=== PATIENT | male | born 1935 | race Caucasian/White ===

== ENCOUNTER 2016-08-17 18:29 | Inpatient (IN) | payer MEDICARE, OTHER ==
--- NOTE | 2016-08-17 19:25 | Emergency Department Record ---
History of Present Illness - General Chief Complaint: Dizziness Stated Complaint: DIZZY Time Seen by Provider: 08/17/16 19:03 Source: Patient, Family Mode of Arrival: Wheelchair - History of Present Illness Initial Comments: The patient awakened this morning with the room spinning when he got up. He said the spinning made him nauseated and he felt like he might fall over, like he was seasick. He did not vomit, and did not fall. He states the symptoms improve when he stays still. He had a mild frontal headache this morning also which has resolved after taking aspirin. He denies f,c, slurred speech, vision changes, unilateral weakness. Family states he was flushed and the took his temp earlier which was normal. He has a history of low back surgery years ago with mild residual right leg numbness which is unchanged. 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 This was about 20 years ago and no cancer has recurred. He denies history of CAD, TN, DVT, PE, CVA, and does not smoke. MD Complaint: Dizziness Onset/Timin -: Hour(s) Timing: Awoke with symptoms Description: Difficulty walking, "Room spinning" History of Same: No History of Trauma: No Severity: Moderate Improves With: Remaining still Worsens With: Movement Associated Symptoms: Denies other symptoms - [place] Coma Scale Eye Response: (4) Open spontaneously Motor Response: (6) Obeys commands Verbal Response: (5) Oriented Joey Total: 15 - Related Data Home Medications Medication Instructions Recorded Confirmed Last Taken Amlodipine Besylate [Norvasc] 10 mg PO DAILY 08/17/16 08/17/16 08/17/16 Aspirin [Adult Low Dose Aspirin EC] 81 mg PO DAILY 08/17/16 08/17/16 08/17/16 Ciprofloxacin HCl [Cipro] 500 mg PO ASDIR 08/17/16 08/17/16 08/17/16 Omeprazole [Prilosec] 20 mg PO DAILY 08/17/16 08/17/16 08/17/16 Allergies Allergy/AdvReac Type Severity Reaction Status Date / Time meperidine [From Demerol] AdvReac DIZZINESS Verified 08/17/16 18:33 Travel Screening - Travel/Exposure Within Last 30 Days Have you traveled within the last 30 days?: No - Travel/Exposure Within Last Year Have you traveled outside the [place] in the last year?: No - Additonal Travel Details Have you been exposed to anyone with a communicable illness?: No - Travel Symptoms Symptom Screening: None Review of Systems Reviewed: No additional complaints except as noted below Constitutional: Reports: As per HPI. Denies: Chills, Fever, Malaise, Night sweats, Weakness, Weight change Eyes: Reports: As per HPI. Denies: Eye discharge, Eye pain, Photophobia, Vision change ENT: Reports: As per HPI. Denies: Congestion, Dental pain, Ear pain, Epistaxis , Hearing loss, Throat pain Respiratory: Reports: As per HPI. Denies: Cough, Dyspnea, Hemoptysis, Stridor, Wheezes Cardiovascular: Reports: As per HPI. Denies: Arrhythmia, Chest pain, Dyspnea on exertion, Edema, Murmurs, Orthopnea, Palpitations, Paroxysmal nocturnal dyspnea, Rheumatic Fever, Syncope Endocrine: Reports: As per HPI. Denies: Fatigue, Heat or cold intolerance, Polydipsia, Polyuria Gastrointestinal: Reports: As per HPI. Denies: Abdominal pain, Constipation, Diarrhea, Hematemesis, Hematochezia, Melena, Nausea, Vomiting Genitourinary: Reports: As per HPI. Denies: Dysuria, Frequency, Hematuria, Incontinence, Retention, Testicular pain, Testicular mass, Urgency Musculoskeletal: Reports: As per HPI. Denies: Arthralgia, Back pain, Gout, Joint swelling, Myalgia, Neck pain Skin: Reports: As per HPI. Denies: Bruising, Change in color, Change in hair/ nails, Lesions, Pruritus, Rash Neurological: Reports: As per HPI. Denies: Abnormal gait, Confusion, Headache, Numbness, Paresthesias, Seizure, Tingling, Tremors, Vertigo, Weakness Psychiatric: Reports: As per HPI. Denies: Anxiety, Auditory hallucinations, Depression, Homicidal thoughts, Suicidal thoughts, Visual hallucinations Hematological/Lymphatic: Reports: As per HPI. Denies: Anemia, Blood Clots, Easy bleeding, Easy bruising, Swollen glands Past Medical History - SOCIAL HISTORY Smoking Status: Never smoker Alcohol Use: None Drug Use: None - RESPIRATORY Hx Respiratory Disorders: No - CARDIOVASCULAR Hx Cardio Disorders: Yes Hx Hypertension: Yes - NEURO Hx Neuro Disorders: No - GI Hx GI Disorders: Yes Comment:: colostomy - Hx Genitourinary Disorders: Yes Hx Prostate Problems: Yes (cancer) Comment:: urostomy - ENDOCRINE Hx Endocrine Disorders: No - MUSCULOSKELETAL Hx Musculoskeletal Disorders: No - PSYCH Hx Psych Problems: No - HEMATOLOGY/ONCOLOGY Hx Hematology/Oncology Disorders: Yes Hx Cancer: Yes Hx Radiation Therapy: Yes Family Medical History Any Significant Family History?: No Physical Exam - General General Appearance: Alert, Oriented x3, Cooperative, No acute distress - Head Head exam: Normal inspection - Eye Eye exam: Normal appearance, PERRL Pupils: Normal accommodation - ENT ENT exam: Normal exam, Mucous membranes moist, Normal external ear exam, Normal orophraynx, TM's normal bilaterally Ear exam: Normal external inspection. negative: External canal tenderness Nasal Exam: Normal inspection. negative: Discharge, Sinus tenderness Mouth exam: Normal external inspection, Tongue normal Teeth exam: Normal inspection. negative: Dental caries Throat exam: Normal inspection. negative: Tonsillar erythema, Tonsillar exudate - Neck Neck exam: Normal inspection, Full ROM. negative: Tenderness - Respiratory Respiratory exam: Normal lung sounds bilaterally. negative: Respiratory distress - Cardiovascular Cardiovascular Exam: Regular rate, Normal rhythm, Normal heart sounds - GI/Abdominal GI/Abdominal exam: Soft, Normal bowel sounds, Other (urostomy pouch intact and functioning; colostomy intact and functioning). negative: Tenderness - Rectal Rectal exam: Deferred - exam: Deferred - Extremities Extremities exam: Normal inspection, Full ROM, Normal capillary refill. negative: Calf tenderness, Joint swelling, Pedal edema, Tenderness - Back Back exam: Reports: Normal inspection, Full ROM. Denies: CVA tenderness (R), CVA tenderness (L), Muscle spasm, Rash noted, Tenderness - Neurological Neurological exam: Alert, CN II-XII intact, Oriented X3, Reflexes normal - Psychiatric Psychiatric exam: Normal affect, Normal mood - Skin Skin exam: Dry, Intact, Normal color, Warm Course Vital Signs 08/17/16 18:38 Temperature 97.5 F L Pulse Rate 80 Respiratory 16 Rate Blood Pressure 136/76 Pulse Ox 97 - Reevaluation(s) Reevaluation #1: Patient agrees to admission for his UTI, Nausea, vertigo, renal insufficiency 08/17/16 21:37 Reevaluation #2: Family and patient concerned that if he tried to walk he would fall down and injure himself. Family wishes full admission. PCP Dr. Mcguire. 08/17/16 21:42 Medical Decision Making - Management Options MDM Management: Additional Work-up Planned (e.g. ADM/Transfer/OP Study) (UTI; renal insufficiency; vertigo, nausea) - Data Complexity MDM Data: Labs Ordered and/or Reviewed, X-Ray Ordered and/or Reviewed ( Noncontrast Head CT: SVID periventricular; no acute infarct or hemorrhage. Per Rad.), EKG Ordered and/or Reviewed - Lab Data Result diagrams: 08/17/16 Unknown 08/17/16 Unknown - EKG Data -: EKG Interpreted by Me EKG: No Acute Changes (No prior available;) Disposition Disposition: Admit Clinical Impression: UTI (urinary tract infection) with pyuria, Vertigo, Nausea, Renal insufficiency Disposition: Still a Patient at [facility] Decision to Admit: Admit from ER Decision to Admit Date: 08/17/16 Decision to Admit Time: 21:42 Accepting Physician: Dr. Amador Condition: (2) Stable
[2016-08-17] MEDS ORDERED: DIAZEPAM 5 MG TABLET PO ONE (19:33)
[2016-08-17 20:11] LABS: URINE APPEARANCE CLEAR; URINE BILIRUBIN NEGATIVE (NEGATIVE); URINE BLOOD MODERATE (NEGATIVE); URINE COLOR YELLOW; URINE GLUCOSE (UA) NEGATIVE (NEGATIVE); URINE KETONE NEGATIVE (NEGATIVE); URINE LEUKOCYTE ESTERASE LARGE (NEGATIVE); URINE NITRITE POSITIVE (NEGATIVE); URINE PROTEIN TRACE (NEGATIVE); URINE UROBILINOGEN 0.2 E.U./dL (0.20 - 1.00)
[2016-08-17 20:27] LABS: URINE BACTERIA 2+; URINE MUCUS HEAVY
[2016-08-17 20:56] LABS: HEMATOCRIT 45.1 % (42.0-52.0); HEMOGLOBIN 14.3 gm/dl (14.0-18.0); MEAN CELL VOLUME 97.4 fl (81-97); MEAN CORPUSCULAR HEMOGLOBIN 30.9 pg (27-33); MEAN CORPUSCULAR HGB CONC 31.7 g/dl (32-36); PLATELET COUNT 291 K/uL (130-400); RED BLOOD COUNT 4.63 M/uL (4.40-5.70); RED CELL DISTRIBUTION WIDTH 14.1 % (11.5-14.5); WHITE BLOOD COUNT W/O DIFF 8.6 K/uL (4.2-12.2)
[2016-08-17 21:14] LABS: ANION GAP 12.5 (7-16); BLOOD UREA NITROGEN 21 mg/dL (9-20); CARBON DIOXIDE 22.5 mmol/L (22-30); CREATINE PHOSPHOKINASE 130 U/L (55-170); CREATININE 1.5 mg/dL (0.66-1.25); EST GLOMERULAR FILTRATION RATE 48 ml/min; GLUCOSE,RANDOM 94 mg/dL (70-110)
[2016-08-17 21:26] LABS: CKMB 1.8 ug/L (0-6); TROPONIN I < 0.012 ng/mL (0.00-0.034)
[2016-08-17] MEDS ORDERED: CIPROFLOXACIN LACTATE/D5W 400 MG/200 ML BAG IVPB ONE (21:38)
[2016-08-17] MEDS ORDERED: ACETAMINOPHEN 500 MG TABLET PO PRN (22:13)
[2016-08-17] MEDS ORDERED: CIPROFLOXACIN LACTATE/D5W 400 MG/200 ML BAG IVPB SCH (22:13)
[2016-08-17] MEDS ORDERED: AL HYDROX/MAG HYDROX 30ML UD PO PRN (22:13)
[2016-08-17] MEDS ORDERED: DIAZEPAM 5 MG/1 ML TUBX IVP PRN (22:13)
[2016-08-18 06:47] LABS: ANION GAP 9.6 (7-16); CARBON DIOXIDE 21.4 mmol/L (22-30); CREATININE 1.5 mg/dL (0.66-1.25)
[2016-08-18] MEDS ORDERED: PANTOPRAZOLE SODIUM 40 MG TABLET PO SCH (07:00)
--- NOTE | 2016-08-18 07:32 | CT SCAN REPORT ---
EXAM: CT OF THE BRAIN WITHOUT CONTRAST HISTORY: DIZZINESS. TECHNIQUE: Sequential axial images were obtained from the foramen magnum to the vertex without contrast administration. FINDINGS: The brain volume is normal. There is periventricular small vessel ischemia. No large territorial infarct, hemorrhage, mass effect, or midline shift. No extraaxial fluid collection. The orbits, paranasal sinuses, and mastoid air cells are normal. IMPRESSION: PERIVENTRICULAR SMALL VESSEL ISCHEMIA. NO LARGE TERRITORIAL INFARCT, HEMORRHAGE , MASS EFFECT, OR MIDLINE SHIFT IS APPRECIATED. [facility]: [id number] [facility]
[2016-08-18] MEDS ORDERED: MECLIZINE 25 MG TABLET PO SCH (10:00)
[2016-08-18] MEDS ORDERED: ASPIRIN 81 MG TABEC PO SCH (10:00)
[2016-08-18] MEDS ORDERED: CIPROFLOXACIN LACTATE/D5W 400 MG/200 ML BAG IVPB SCH (10:00)
[2016-08-18] MEDS ORDERED: AMLODIPINE BESYLATE 5MG TAB PO SCH (10:00)
--- NOTE | 2016-08-18 13:19 | Discharge Note ---
VTE H&P Assessment - Risk for VTE Risk for VTE: No Risk Level: Low Risk Assessment Date: 08/18/16 Risk Assessment Time: 13:15 VTE Orders Placed or Will Be Placed: No VTE Reason for No Prophylaxis: Not Indicated Discharge Medications - Discharge Medications Home Medications: Ambulatory Orders Amlodipine Besylate [Norvasc] 10 mg PO DAILY 08/17/16 [Last Taken 08/17/16] Aspirin [Adult Low Dose Aspirin EC] 81 mg PO DAILY 08/17/16 [Last Taken 08/17/16 ] Omeprazole [Prilosec] 20 mg PO DAILY 08/17/16 [Last Taken 08/17/16] Acetaminophen [Tylenol 500Mg Tab] 500 mg PO Q6H PRN 08/18/16 [Last Taken Unknown ] Ciprofloxacin HCl [Cipro] 500 mg PO Q12H #20 tablet 08/18/16 [Last Taken Unknown ] Meclizine HCl [Antivert] 25 mg PO TID #30 08/18/16 [Last Taken Unknown] Discharge Note - Date Date of Discharge Note: 08/18/16 Disposition: Home, Self-Care Condition: (2) Stable Additional Instructions: follow up with Dr. harmon in 7 days. antivert 25 mg three times a day Prescriptions: Ciprofloxacin HCl [Cipro] 500 mg PO Q12H #20 tablet Meclizine HCl [Antivert] 25 mg PO TID #30 Forms: Patient Portal Access
--- NOTE | 2016-08-19 09:51 | History and Physical Report ---
CHIEF COMPLAINT: Spinning and vertigo. HISTORY OF CHIEF COMPLAINT: This 81-year-old male woke up with a sensation of spinning when he got up, it was much worse when he sat up, moved around or rotated his head right or left. He was nauseated. He felt like he was going to fall over. He felt sea sick. He did not vomit and he did not fall. He had a mild frontal headache when he woke up that has resolved after taking an aspirin this morning. He denies any slurred speech, visual changes, or unilateral weakness. He was a little bit flushed and his temperature was normal at home. He has a history of low back surgery and mild residual right leg pain. He also had prostate cancer radiation which damaged the colon and bladder. He has a urostomy and a colostomy tube. They put a new bag on and checked the urine, still it was very contaminated with WBC's, RBC's and bacteria so the Emergency Room doctor Dr. Hodgson who evaluated him in the Emergency Room felt he needed to be on IV antibiotic therapeutic amount. He was taking normally maintenance of Cipro 250 every other day to prevent urinary tract infections. Currently he is on 400 of Cipro IV twice a day. PAST MEDICAL HISTORY: He has hypertension, GERD, and he has a urostomy and colostomy bag. He had colon cancer and radiation therapy about twenty years ago. PAST SURGICAL HISTORY: He has had prostate surgery for prostate cancer treated with radiation which caused damage to his colon and bladder, he had back surgery with some residual numbness in the right leg. MEDICATIONS ON ADMISSION: He is on Cipro 250 every other day, Norvasc 10 mg q daily, Omeprazole 20 mg q daily, and aspirin 81 mg q daily. ALLERGIES: MEPERIDINE WHICH IS DEMEROL. FAMILY/PSYCHOSOCIAL HISTORY: Unremarkable. No cigarette or tobacco use. REVIEW OF SYSTEMS: HEENT: No upper respiratory infectious symptoms, cough, cold or congestion. Cardiovascular: No chest pain, palpitations, or arrhythmias. Respiratory: No cough, cold or congestion. Gastrointestinal: No nausea, vomiting, diarrhea, black stools, or bloody stools. Genitourinary: No dysuria, hematuria, frequency or burning on urination. Musculoskeletal: No joint or bone abnormalities. Neurologic: He does have some numbness in the right leg which is residual from his back surgery. No CVA, paralysis or paresthesias. Endocrine: No diabetes or thyroid disease. Integument: No rash , ulcers, change in moles or yellow skin. PHYSICAL EXAMINATION: Height is 5'7", weight is 166 pounds. Vital signs - Temperature is 97.5, pulse is 93, blood pressure is 124/72, pulse ox is 97% on room air. HEENT: Pupils are equal, round and reactive to light and accommodation. Extraocular muscles are intact. Throat is clear. Nose is clear. Tympanic membranes are nava. NECK: Supple. No jugular venous distension. No hepatojugular reflex. No carotid bruits. Thyroid is smooth. CARDIOVASCULAR: Regular rate and rhythm without murmurs, clicks, rubs or gallops. RESPIRATORY: Clear to auscultation and percussion. ABDOMEN: Soft, nontender. No hepatosplenomegaly. No masses. No tenderness. Bowel sounds are active. No bruits. EXTREMITIES: No pitting edema. No cyanosis. No clubbing. Full range of motion. Peripheral pulses are good. BREASTS: Normal male breasts. RECTAL: Deferred. GENITALIA: Deferred. NEUROLOGICAL: Cranial nerves II through XII intact. No gross defects. Sensation normal. Strength normal. Deep tendon reflexes are equal bilaterally. Babinski's negative. He has nystagmus when turning his head right and left and he has a spinning sensation with that nystagmus. MENTAL STATUS: Alert and oriented times three. IMPRESSION: 1. BENIGN POSTURAL VERTIGO. 2. URINARY TRACT INFECTION. 3. 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 4. RENAL INSUFFICIENCY. HIS CREATININE IS 1.5 WHICH IS THE TYPICAL AMOUNT. PLAN: The patient is doing better. We will change him to observation, discharge the patient, Antivert 25 mg t.i.d., follow-up with Dr. Mcguire in seven days, continue Cipro at 250 twice a day for ten days and then switch back to the Cipro 250 then every other day for maintenance to prevent urinary tract infections. We will continue his home medications of Amlodipine 10 mg a day, Omeprazole 20 mg a day, and aspirin 81 mg a day. [facility] [id number] [facility]
--- NOTE | 2016-08-19 15:50 | Discharge Summary ---
DATE: 08/18/2016 DISCHARGE DIAGNOSES: 1. Benign postural vertigo. 2. Urinary tract infection. 3. Renal insufficiency, stable creatinine of 1.5. 4. Possible colonization of his urostomy bag and he is on maintenance Cipro 250 every other day. 5. Status post hypertension. 6. Status post gastroesophageal reflux disease. ATTENDING PHYSICIAN: Polo Amador DO REASON FOR HOSPITALIZATION: Vertigo. The patient developed a spinning sensation when he woke up on the day of admission, yesterday, and it was worse moving his head right or left. He had some nausea. He felt like his balance was off. He was seasick. He came to the ER, got some IV Valium and felt better and was put in the hospital to rule out a stroke. His CT scan was normal and his neuro checks were normal. He does not have any signs of stroke at this time. SIGNIFICANT FINDINGS: CT was negative for any significant abnormalities. There was some periventricular small vessel ischemia. No large territorial infarct seen or hemorrhages, mass effects, or midline shifts appreciated. Set of cardiac enzymes was normal. Urine showed too numerous to count RBC, too numerous WBCs, and 2+ bacteria but he has a urostomy bag. They did put a new bag on to try to get a clean catch urine but it still is very positive. Moderate blood in the urine dipstick. White count 8600, hemoglobin 14.6. No fever, no chills. He was started on IV Cipro plus IV Valium for his vertigo. Switched over to Antivert today and he is feeling much better. THERAPY PROVIDED: IV fluids. Serial neuro checks and evaluation. HOSPITAL COURSE: He is much improved. CONDITION ON DISCHARGE: Much improved. DISCHARGE INSTRUCTIONS: Follow up with Dr. Mcguire in 7 days. Start the Antivert 25 mg t.i.d., Cipro 500 mg b.i.d. for 10 days. After that is gone, he is to switch back to his maintenance of Cipro at 250 every other day and continue his home medications of amlodipine 10 mg daily, omeprazole 20 mg daily, and aspirin 81 mg daily. [facility]
== END 2016-08-18 14:30 | disposition home or self-care (01) | DRG 149 ==
LOC: ER 18:29 → MEDSURG 22:02
PROVIDERS: ADMIT Emergency Medicine; ATTEND Emergency Medicine
DX: H81.10 Benign paroxysmal vertigo, unspecified ear (principal); H81.13 Benign paroxysmal vertigo, bilateral; N39.0 Urinary tract infection, site not specified; I10 Essential (primary) hypertension; Z85.038 Personal history of other malignant neoplasm of large intestine; Z85.46 Personal history of malignant neoplasm of prostate; N28.9 Disorder of kidney and ureter, unspecified; K21.9 Gastro-esophageal reflux disease without esophagitis; Z93.6 Other artificial openings of urinary tract status; Z93.3 Colostomy status
CPT/HCPCS: 81001; 70450; 93005; 93010; J0744; J3490; 80048; 82550; 82553; 84484; 85027; 96365; 99223; 99285

== ENCOUNTER 2017-02-19 10:16 | Observation (INO) | payer MEDICARE, OTHER ==
--- NOTE | 2017-02-19 10:40 | Emergency Department Record ---
History of Present Illness - General Chief Complaint: Dizziness Stated Complaint: DIZZY/NAUSEA/HEADACHE Time Seen by Provider: 02/19/17 10:39 Source: Patient Mode of Arrival: Ambulatory Limitations: No limitations - History of Present Illness Initial Comments: The patient is here due to a 4 hour hx of nausea, vomiting twice and dizziness. He describes the dizziness as like the room is spinning and feeling off balance. The symptoms are much worse with any walking or standing or moving his head. There is mild nausea presently but he no longer is vomiting. The patient also denies any CP, SOB, JOVANY, AP, change in his stool pattern or bleeding. He also has had no new arm or leg numbness, weakness, visual changes, or speech difficulties. The patient does have a hx of Prostrate CA and does have a Urostomy and Colostomy. MD Complaint: Dizziness Onset/Timin -: Hour(s) - Symptoms of Stroke Symptom Onset Unknown: No Symptoms of stroke: Dizziness - Related Data Home Medications Medication Instructions Recorded Confirmed Last Taken Atorvastatin Calcium [Lipitor] 10 mg PO QHS 02/19/17 02/19/17 02/18/17 2100 Ciprofloxacin HCl [Cipro] 500 mg PO Q72HR 02/19/17 02/19/17 1 Day Ago ~02/18/17 Previous Rx's Medication Instructions Recorded Acetaminophen [Tylenol 500Mg Tab] 500 mg PO Q6H PRN 08/18/16 Meclizine HCl [Antivert] 25 mg PO TID #30 08/18/16 Allergies Allergy/AdvReac Type Severity Reaction Status Date / Time meperidine [From Demerol] AdvReac DIZZINESS Verified 02/19/17 11:10 Review of Systems Constitutional: Denies: Chills, Fever Eyes: Denies: Eye discharge ENT: Denies: Congestion, Other Respiratory: Denies: Cough, Dyspnea Cardiovascular: Denies: Arrhythmia Endocrine: Denies: Fatigue Gastrointestinal: Reports: Nausea, Vomiting. Denies: Abdominal pain Genitourinary: Denies: Dysuria Musculoskeletal: Denies: Arthralgia Past Medical History - SOCIAL HISTORY Smoking Status: Never smoker Drug Use: None - RESPIRATORY Hx Respiratory Disorders: No - CARDIOVASCULAR Hx Cardio Disorders: Yes Hx Hypertension: Yes - NEURO Hx Neuro Disorders: No Comment:: residual numbness of RLE after back surgery - GI Hx GI Disorders: Yes Comment:: colostomy - Hx Genitourinary Disorders: Yes Hx Prostate Problems: Yes (cancer) Comment:: urostomy - ENDOCRINE Hx Endocrine Disorders: No - MUSCULOSKELETAL Hx Musculoskeletal Disorders: No - PSYCH Hx Psych Problems: No - HEMATOLOGY/ONCOLOGY Hx Hematology/Oncology Disorders: Yes Hx Cancer: Yes Hx Radiation Therapy: Yes Physical Exam - General General Appearance: Alert, Oriented x3, Cooperative, No acute distress - Head Head exam: Atraumatic, Normocephalic, Normal inspection - Eye Eye exam: Normal appearance, PERRL - ENT ENT exam: TM's normal bilaterally Throat exam: Normal inspection. negative: Tonsillar erythema, Tonsillar exudate - Neck Neck exam: Normal inspection, Full ROM. negative: Tenderness - Respiratory Respiratory exam: Normal lung sounds bilaterally. negative: Respiratory distress - Cardiovascular Cardiovascular Exam: Regular rate, Normal rhythm, Normal heart sounds - GI/Abdominal GI/Abdominal exam: Soft, Normal bowel sounds. negative: Tenderness - Extremities Extremities exam: Normal inspection, Full ROM, Normal capillary refill. negative: Tenderness - Neurological Neurological exam: Abnormal gait (The patient is mildly ataxic with turning and walking.), Alert, Oriented X3, Other (Normal Finger to Nose testing.). negative : Altered, Motor sensory deficit, Normal gait - Skin Skin exam: negative: Rash Course - Reevaluation(s) Reevaluation #1: The patient is doing better. He does feel less unsteady but is still mildly ataxic with walking and turning. There is no DELACRUZ, nausea, or any arm or leg weakness. 02/19/17 11:54 Reevaluation #2: The patient is doing a little better but is still vertiginous with any head movement. He does not appear to be comfortable going home so I did discuss staying in the hospital overnight and he did agree. I then did discuss the case with the admitting PA (Kandace) and she does agree with the plan to admit as an OBS. 02/19/17 12:36 Medical Decision Making - Data Complexity MDM Data: Labs Ordered and/or Reviewed, X-Ray Ordered and/or Reviewed, EKG Ordered and/or Reviewed - Lab Data Result diagrams: 02/19/17 10:55 02/19/17 10:55 - EKG Data -: EKG Interpreted by Me EKG: No Acute Changes, Unchanged From Previous - Radiology Data Radiology results: Report reviewed (Head CT: No acute changes.) Disposition Disposition: Admit Clinical Impression: Ataxia Disposition: Still a Patient at [facility] Decision to Admit: Admit from ER Decision to Admit Date: 02/19/17 Decision to Admit Time: 12:38 Accepting Physician: Ibeth Time Discussed w/Accepting Physician: 12:38 Condition: (2) Stable Time of Disposition: 12:38 Quality - Quality Measures Quality Measures: N/A - Blood Pressure Screening View Details: Yes Does Patient Have Any of the Following: Active Dx of HTN Blood Pressure Classification: Hypertensive Reading Systolic Measurement: 164 Diastolic Measurement: 90 Screening for High Blood Pressure: Patient Exclusion, Hx of HTN [G9744] Pre-Hypertensive Follow-up Interventions: Referral to alternative/primary care provider.
[2017-02-19] MEDS ORDERED: ONDANSETRON HCL IV 4 MG/2 ML VIAL IVP ONE (10:47)
[2017-02-19] MEDS ORDERED: MECLIZINE 25 MG TABLET PO ONE (10:47)
[2017-02-19] MEDS ORDERED: 0.9 % SODIUM CHLORIDE 1,000 ML BAG IV ONE (10:50)
[2017-02-19 11:19] LABS: HEMATOCRIT 45.3 % (42.0-52.0); MEAN CELL VOLUME 97.2 fl (81-97); MEAN CORPUSCULAR HEMOGLOBIN 32.2 pg (27-33); MEAN CORPUSCULAR HGB CONC 33.1 g/dl (32-36); MEAN PLATELET VOLUME 9.1 fl (7.4-10.4); PLATELET COUNT 268 K/uL (130-400); RED BLOOD COUNT 4.66 M/uL (4.40-5.70); RED CELL DISTRIBUTION WIDTH 13.4 % (11.5-14.5); WHITE BLOOD COUNT W/O DIFF 9.7 K/uL (4.2-12.2)
[2017-02-19 11:29] LABS: PLATELET ESTIMATE NORMAL (NORMAL)
[2017-02-19 11:41] LABS: ALB/GLOB RATIO 1.1 (1.1-1.8); ALKALINE PHOSPHATASE 90 U/L (40-129); ALT/SGPT 13 U/L (<41); AST/SGOT 17 U/L (10.0-50.0); BLOOD UREA NITROGEN 24 mg/dL (8-23); CKMB 3.2 ng/mL (<6.73); CREATINE PHOSPHOKINASE 143 U/L (39-308); CREATININE 1.4 mg/dL (0.7-1.2); EST GLOMERULAR FILTRATION RATE 52 mL/min; GLUCOSE,RANDOM 161 mg/dL (74-109); TOTAL PROTEIN 7.5 g/dL (6.6-8.7)
[2017-02-19] MEDS ORDERED: DIAZEPAM 5 MG/1 ML TUBX IVP ONE (11:52)
[2017-02-19] MEDS ORDERED: ASPIRIN 325 MG TABLET PO ONE (12:45)
[2017-02-19] MEDS ORDERED: ACETAMINOPHEN 500 MG TABLET PO PRN (13:52)
[2017-02-19] MEDS: ASPIRIN 325 MG TABLET PO SCH (14:18)
[2017-02-19] MEDS ORDERED: MECLIZINE 25 MG TABLET PO SCH (16:00)
[2017-02-19] MEDS: MECLIZINE 25 MG TABLET PO PRN (16:11)
[2017-02-19] MEDS ORDERED: ATORVASTATIN 20 MG TABLET PO SCH (22:00)
--- NOTE | 2017-02-20 07:19 | CT SCAN REPORT ---
EXAM: HEAD CT WITHOUT CONTRAST HISTORY: ACUTE VERTIGO AND VOMITING. TECHNIQUE: Contiguous axial images from the cerebral convexities to the foramen magnum were obtained without IV contrast. Comparison: Head CT 08/17/16. Hand dominance: Right. FINDINGS: Minimal generalized atrophy of the brain. No acute intracranial hemorrhage, mass effect, or midline shift. No CT evidence of large acute territorial infarct. Mild to moderate decreased attenuation in the periventricular white matter of the cerebral hemispheres. The ventricles, basal cisterns and sulci are within normal limits. Severe calcification of the cavernous segments of the internal carotid arteries. The osseous structures and paranasal sinuses are unremarkable. IMPRESSION: 1. NO ACUTE INTRACRANIAL PROCESS WITH NO INTERVAL CHANGE. 2. MILD TO MODERATE CHRONIC SMALL VESSEL ISCHEMIC CHANGE. J[facility]BER: [id number] [facility]
[2017-02-20 08:09] LABS: BASO % 0.2 % (0-6); EOS % 3.6 % (0-6); GRAN % 73.4 % (47-80); HEMATOCRIT 44.8 % (42.0-52.0); HEMOGLOBIN 14.6 gm/dl (14.0-18.0); LYMPH % 13.7 % (16-45); MEAN CELL VOLUME 97.8 fl (81-97); MEAN CORPUSCULAR HEMOGLOBIN 31.9 pg (27-33); MEAN CORPUSCULAR HGB CONC 32.6 g/dl (32-36); MEAN PLATELET VOLUME 9.1 fl (7.4-10.4); MONO % 9.1 % (0-9); PLATELET COUNT 275 K/uL (130-400); RED BLOOD COUNT 4.58 M/uL (4.40-5.70); RED CELL DISTRIBUTION WIDTH 13.4 % (11.5-14.5); WHITE BLOOD COUNT W/O DIFF 8.8 K/uL (4.2-12.2)
[2017-02-20 08:21] LABS: ALB/GLOB RATIO 1.2 (1.1-1.8); ALBUMIN 3.7 g/dL (4.0-5.0); BILIRUBIN,TOTAL 0.5 mg/dL (0.2-1.0); CREATININE 1.5 mg/dL (0.7-1.2); TOTAL PROTEIN 6.7 g/dL (6.6-8.7)
--- NOTE | 2017-02-20 09:29 | History & Physical ---
History of Present Illness - Date of Service Date of Service for History & Physical: 02/20/17 - History of Present Illness Admitting Diagnosis: 1. Acute Ataxia, R/O CVA. History of Present Illness: Antoni is an 81 year-old male with chief complaint of dizziness. 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 He came to the ER yesterday, 02/19/17, because he was experiencing nausea, vomiting x2, and dizziness for 4 hours. He described the dizziness as "room spinning". He denied fever and chest pain, and his LOC was not altered. Symptoms persisted so he decided to come to ED. While in ED, his vital signs were: BP 164/90, HR 79, RR 20, and temp 97.8F. He had an EKG that showed no changes from previous EKG. His CBC and CMP were unremarkable, kidney function was at baseline. Head CT showed no acute intracranial changes, however, it did show mild chronic small vessel ischemia. No focal neuro deficits in ED. Due to persistent dizziness increasing fall risk , patient was admitted for observation. 02/20/17- Pt. feels overall better than yesterday. His nausea has subsided. He still feels somewhat unsteady walking and his dizziness is reproduced with brisk head movements. He denies chest pain, weakness, headache, numbness, and weakness. Pt. was up with physical therapy an is able to safely ambulate with walker. pcp: [facility] Travel Screening - Travel/Exposure Within Last 30 Days Have you traveled within the last 30 days?: No - Travel/Exposure Within Last Year Have you traveled outside the [place] in the last year?: No - Additonal Travel Details Have you been exposed to anyone with a communicable illness?: No - Travel Symptoms Symptom Screening: None Review of Systems Constitutional: Denies: Chills, Fever Eyes: Denies: Eye discharge ENT: Denies: Congestion, Other Respiratory: Denies: Cough, Dyspnea Cardiovascular: Denies: Arrhythmia Endocrine: Denies: Fatigue Gastrointestinal: Reports: Nausea, Vomiting. Denies: Abdominal pain Genitourinary: Denies: Dysuria Musculoskeletal: Denies: Arthralgia Neurological: Reports: Vertigo Past Medical History - SOCIAL HISTORY Smoking Status: Never smoker Drug Use: None - RESPIRATORY Hx Respiratory Disorders: No - CARDIOVASCULAR Hx Cardio Disorders: Yes Hx Hypertension: Yes Comment:: Hyperlipidemia - NEURO Hx Neuro Disorders: No Comment:: residual numbness of RLE after back surgery - GI Hx GI Disorders: Yes Comment:: colostomy - Hx Genitourinary Disorders: Yes Hx Prostate Problems: Yes (cancer) Comment:: urostomy - ENDOCRINE Hx Endocrine Disorders: No - MUSCULOSKELETAL Hx Musculoskeletal Disorders: No - PSYCH Hx Psych Problems: No - HEMATOLOGY/ONCOLOGY Hx Hematology/Oncology Disorders: Yes Hx Cancer: Yes Hx Radiation Therapy: Yes Family Medical History Any Significant Family History?: Yes Hx Cancer: Brother/Sister Hx Heart Disease: Father Hx Stroke: Brother/Sister H&P Meds/Allergies - Allergies Allergies: Allergies Allergy/AdvReac Type Severity Reaction Status Date / Time meperidine [From Demerol] AdvReac DIZZINESS Verified 02/19/17 11:10 - Home Medications Home Medications Medication Instructions Recorded Confirmed Last Taken Atorvastatin Calcium [Lipitor] 10 mg PO QHS 02/19/17 02/19/17 02/18/17 2100 Ciprofloxacin HCl [Cipro] 500 mg PO MOWEFR 02/19/17 02/19/17 1 Day Ago ~02/18/17 Previous Rx's Medication Instructions Recorded Acetaminophen [Tylenol 500Mg Tab] 500 mg PO Q6H PRN 08/18/16 Meclizine HCl [Antivert] 25 mg PO TID PRN #90 tablet 02/20/17 - Active Medications Active Medications: Current Medications Acetaminophen (Tylenol 500mg Tab) 500 mg PO Q6H PRN PRN Reason: PAIN/TEMP Amlodipine Besylate (Norvasc) 10 mg PO DAILY [facility] Aspirin (Aspirin, Regular) 325 mg PO DAILY [facility] Last Admin: 02/19/17 14:18 Dose: Not Given Atorvastatin Calcium (Lipitor) 10 mg PO QHS [facility] Last Admin: 02/19/17 22:16 Dose: 10 mg Ciprofloxacin (Cipro) 250 mg PO MoWeFr [facility] Meclizine HCl (Antivert) 25 mg PO TID PRN PRN Reason: DIZZINESS Last Admin: 02/19/17 16:11 Dose: 25 mg Physical Exam - Vital Signs Vital Signs: Vital Signs - Last 24 Hrs Temp Pulse Pulse Resp BP Pulse Ox 02/20/17 09:00 98.0 F 81 18 110/54 93 L 02/20/17 05:00 97.5 F L 86 18 105/66 95 02/19/17 20:00 98.0 F 88 20 98/73 96 02/19/17 15:54 85 16 02/19/17 14:35 90 16 97 02/19/17 13:52 97.5 F L 85 18 148/79 97 - General General Appearance: Alert, Oriented x3, Cooperative, No acute distress Limitations: No limitations - Head Head exam: Atraumatic, Normocephalic, Normal inspection - Eye Eye exam: Normal appearance, PERRL - ENT ENT exam: TM's normal bilaterally Throat exam: Normal inspection. negative: Tonsillar erythema, Tonsillar exudate - Neck Neck exam: Normal inspection, Full ROM. negative: Tenderness - Respiratory Respiratory exam: Normal lung sounds bilaterally. negative: Respiratory distress - Cardiovascular Cardiovascular Exam: Regular rate, Normal rhythm, Normal heart sounds Peripheral Pulses: 2+: Dorsalis Pedis (R), Dorsalis Pedis (L) - GI/Abdominal GI/Abdominal exam: Soft, Normal bowel sounds. negative: Tenderness - Rectal Rectal exam: Deferred - exam: Deferred - Extremities Extremities exam: Normal inspection, Full ROM, Normal capillary refill. negative: Tenderness - Neurological Neurological exam: Abnormal gait (The patient is mildly ataxic with turning and walking.), Alert, CN II-XII intact, Oriented X3, Other (Normal Finger to Nose testing.). negative: Altered, Motor sensory deficit, Normal gait - Psychiatric Psychiatric exam: Normal affect, Normal mood - Skin Skin exam: negative: Rash Results - Labs Result Diagrams: 02/20/17 07:58 02/20/17 07:58 Labs Last 24 Hours: Laboratory Results - last 24 hr 02/20/17 02/20/17 07:58 07:58 WBC 8.8 RBC 4.58 Hgb 14.6 Hct 44.8 MCV 97.8 H MCH 31.9 MCHC 32.6 RDW 13.4 Plt Count 275 MPV 9.1 Gran % 73.4 Lymphocytes % 13.7 L Monocytes % 9.1 H Eosinophils % 3.6 Basophils % 0.2 Sodium 140 Potassium 4.2 Chloride 105 Carbon Dioxide 25.0 Anion Gap 10.0 BUN 21 Creatinine 1.5 H Estimated GFR 48 Random Glucose 104 Calcium 8.8 Total Bilirubin 0.50 AST 16 ALT 12 Alkaline Phosphatase 85 Total Protein 6.7 Albumin 3.7 L Globulin 3.0 Albumin/Globulin Ratio 1.2 - Imaging and Cardiology CT scan - head Status: Report reviewed (No acute changes, mild to moderate chronic small vessel ischemic change) VTE H&P Assessment - Risk for VTE Risk for VTE: Yes Risk Level: High Risk Assessment Date: 02/20/17 Risk Assessment Time: 11:45 VTE Orders Placed or Will Be Placed: Yes Plan - Detailed Diagnosis and Plan (1) Vertigo Status: Acute Base Code: R42 - DIZZINESS AND GIDDINESS Priority: High Comment: 02/20/17- Nausea improving, however, still dizzy with quick head movements. Safe to ambulate with walker per PT. CT head without acute change. Cardiac monitoring without arrhthymia. No focal neuro deficits. -Will have carotid dopplers done today- 02/20/17. - Plan to discharge with home PT for vertigo since he is primary local intermodal truck driver and outpatient PT is not feasible until vertigo improved. (2) Hypertension Status: Acute Qualifiers: Hypertension type: essential hypertension Qualified Code(s): I10 - Essential (primary) hypertension Base Code: I10 - ESSENTIAL (PRIMARY) HYPERTENSION (3) DVT prophylaxis Status: Acute Base Code: [id number] - Comment: 02/20/17- High risk with age but ahs been up ambulating with PT. -will add lovenox if stay >24H anticipated
--- NOTE | 2017-02-20 09:46 | Rehab Evaluation ---
Patient Information - Patient Information Diagnosis: Acute Ataxia Ordered Treatment: PT Evaluate and Treat Status: Initial Evaluation Surgery: No Past Medical/Surgical Hx: PAST MEDICAL/SURGICAL HISTORY Past Surgical History urostomy, colostomy 20 years ago back surgery, prostate removal 1989, 2 hernias, 3 shoulder surgeries, rotator cuff, PMH - Respiratory Hx Respiratory Disorders No PMH - Cardiovascular Hx Cardiovascular Disorders Yes Hx Hypertension Yes Comment: Hyperlipidemia PMH - Neuro Hx Neurological Disorders No Hx Dizziness Yes Comment: residual numbness of RLE after back surgery PMH - GI Hx Gastrointestinal Disorders Yes Hx Gastroesophageal Reflux Yes Comment: colostomy PMH - Hx Genitourinary Disorders Yes Hx Prostate Problems Yes: cancer Comment: urostomy PMH - Endocrine Hx Endocrine Disorders No Hx Diabetes No Hx Thyroid Disease No PMH - Musculoskeletal Hx Musculoskeletal Disorders No PMH - Psych Hx Psychiatric Problems No PMH - Hematology/Oncology Hx Hematology/Oncology Yes Disorders Hx Cancer Yes Hx Radiation Therapy Yes Social History: Detail (Pt. reports he lives in a 2 story home, but only resides on the first floor. Pt. reports he has one step to enter the home with no railing. Pt. reports he has a walk in shower, no tub, with grab bars and a shower seat. Pt. has a standard toilet with no grab bars. Pt. lives with his at home and was completely independent with all daily tasks of living before his complaints of dizziness and nausea. Pt. reports he was able to complete yard work, and chores around the house such as vacuuming and dishes. The patient does have a colostomy and urostomy.) Precautions: [place], Fall - Time With Patient Total Time Spent With Patient (Min): 30 Treatment Procedures: Detail (PT completed inital evaluation.) Subjective Information - Subjective Information Per Patient (See history.) Objective Data - Pain Pain Present: No - Mental Status Patient Orientation: Oriented x3 - Visual Perception Deficit (Pt. requires the use of glasses.) - ROM Within normal limits - Strength/Tone Not within normal limits (Bilateral LE 5/5 grossly. Bilateral hip ADD and ABD 4/ 5. Bilateral shoulder flexion, ABD, and ER 3+/5 with pain in the R shoulder with testing. All other UE tests for shoulder and arms 5/5 grossly.) - Coordination Appears within normal limits for therapeutic activities - Bed Mobility Independent (Pt. reported slight dizziness upon supine to sit transfer in bed that lasted about 5-10 seconds. Pt. denied he felt the room was spinning, but did state he felt dizzy and slighty light headed. Pt. had difficulty interpreting his feeling upon sitting up.) - Transfers Independent (Pt. reported minimal dizziness and light headedness last lasted about 5-10 seconds when completing a sit to stand transfer. Pt. was independent with the transfer. Pt. was independent with stand to sit transfer with no complaints of increased dizziness.) - Balance Balance Sitting: Good Balance Standing: Fair (Static standing balance was fair with minimal sway. Dynamic standing balance was poor. Pt. exhibited difficulty maintaining balance without assistance with tandem stance, worse with R foot in front of the left, difficulty with standing with a narrow base of support with increased side to side sway. Pt. had difficulty with standing with eyes closed, requiring assistance CGA x2 to maintain balance. With A-P and medial-lateral perturbation , the pt. exhibited hip strategies to help maintain balance. Pt. over compensated in all directions of perturbation requiring CGAx2 to keep him from falling.) - Sensation Intact - Gait Detail (Pt. exhibits decreased sense of awareness of his surroundings with ambulation. When turning head from side to side or with quick movements/turning the pt. reported bouts of dizziness and had minimal loss of balance. Pt. ambulated with no AD, CGA x1. Pt. exhibited a staggered step gait with ambulation.) - Special Tests Yes (Modified vertebral artery test was negative bilaterally. Visual testing of convergence was intact, saccadic movements were intact with no reports of dizzness and light headedness, visual tracking was intact, VOR were intact. Motion testing, quick horizontal movements produced slight symptoms of light headedness, quick vertical head movements resulted in dizziness and light headnessed lasting for 5-10 seconds. Modified Hugh-Flathead maneuver with cervical rotation to the left resulted with reports of light headness and dizziness lasting roughly 5-10 seconds with an upward left torsional beating pattern.) Therapy Assessment - Therapy Assessment Detail (Pt. exhibits UE weakness, gait deficits, balance impairments, reports of feeling dizziness and light headedness upon sitting and standing. Pt. and pt' s family was notified to have the pt. use his walker at home with ambulation. PT provided pt. with habitualization exercises to help neutralize his symptoms of dizziness and light headedness. Pt. will benefit from physical therapy to help decrease his impairments and meet his goals for therapy. Home PT is recommended to help with vestibular rehab, balance, and gait training.) Patient Education - Patient Education Teaching Topic: Equipment Use, Exercise/Activity Response: Verbalize Understanding Teaching Method: Discussion, Handout Teaching Recipient: Patient, Family Barriers To Learning: Age Related, Auditory (Pt. is hard of hearing.) Problem List - Problem List Physical Therapy Problem List: Detail (1. UE muscle weakness 2. Gait impairments 3. Balance deficits 4. Dizziness and light headedness upon sitting and standing) Goals - Goals Physical Therapy Goals: 1. Pt. will verbalize and demonstrate understanding of his HEP. 2. Pt. will report decreased frequency and intensity with light headedness and dizziness with quick horizontal and vertical head movements. 3. Pt. will report decreased frequency and intensity with light headedness and dizziness with supine to sit and sit to stand transfers. 4. Pt. will independently ambulate 100ft with or without an assistive device with no reports of increased dizziness or light headedness. Prognosis - Prognosis Good Plan - Plan Physical Therapy Plan: Pt. will be seen 1x per day Thursday-Thursday for physical therapy services consisting of gait training, balance exerecise, vestibular habituational exercises, and UE strengthening exercises. Pt. is to receive home therapy upon discharge.
[2017-02-20] MEDS ORDERED: AMLODIPINE BESYLATE 5MG TAB PO SCH (10:00)
[2017-02-20] MEDS ORDERED: CIPROFLOXACIN HCL 250 MG TABLET PO SCH (10:00)
[2017-02-20] MEDS ORDERED: Non-Formulary MISC (Omeprazole 20 MG) PO SCH (10:00)
[2017-02-20] MEDS: MECLIZINE 25 MG TABLET PO PRN (10:37)
[2017-02-20] MEDS: ASPIRIN 325 MG TABLET PO SCH (10:39)
--- NOTE | 2017-02-20 11:37 | Occupational Therapy Tx Note ---
Occupational Therapy Tx Note - Treatment Note Occupational Therapy Treatment Note: Detail (Pt and do not feel pt needs OT eval as he is Ind with ADLs/IADLs.) Prognosis: Good Occupational Therapy Plan: No further OT needed at this time. Thank you for this referral.
--- NOTE | 2017-02-20 13:34 | Discharge Summary ---
Providers Discharge Summary Date: 02/20/17 Date of admission: 02/19/17 13:05 Attending physician: Brent Cristina Primary care physician: VIDYA PATEL D.O. Physical Exam - Vital Signs Vital Signs: Vital Signs - Last 24 Hrs Temp Pulse Pulse Resp BP Pulse Ox 02/20/17 10:19 94 H 20 96 02/20/17 09:00 98.0 F 81 18 110/54 93 L 02/20/17 05:00 97.5 F L 86 18 105/66 95 02/19/17 20:00 98.0 F 88 20 98/73 96 02/19/17 15:54 85 16 02/19/17 14:35 90 16 97 02/19/17 13:52 97.5 F L 85 18 148/79 97 - General General Appearance: Alert, Oriented x3, Cooperative, No acute distress Limitations: No limitations - Head Head exam: Atraumatic, Normocephalic, Normal inspection - Eye Eye exam: Normal appearance, PERRL - ENT ENT exam: TM's normal bilaterally Throat exam: Normal inspection. negative: Tonsillar erythema, Tonsillar exudate - Neck Neck exam: Normal inspection, Full ROM. negative: Tenderness - Respiratory Respiratory exam: Normal lung sounds bilaterally. negative: Respiratory distress - Cardiovascular Cardiovascular Exam: Regular rate, Normal rhythm, Normal heart sounds Peripheral Pulses: 2+: Dorsalis Pedis (R), Dorsalis Pedis (L) - GI/Abdominal GI/Abdominal exam: Soft, Normal bowel sounds. negative: Tenderness - Rectal Rectal exam: Deferred - exam: Deferred - Extremities Extremities exam: Normal inspection, Full ROM, Normal capillary refill. negative: Tenderness - Neurological Neurological exam: Abnormal gait (The patient is mildly ataxic with turning and walking.), Alert, CN II-XII intact, Oriented X3, Other (Normal Finger to Nose testing.). negative: Altered, Motor sensory deficit, Normal gait - Psychiatric Psychiatric exam: Normal affect, Normal mood - Skin Skin exam: negative: Rash Hospitalization - Hospitalization Admission Diagnosis: 1. Acute Ataxia, R/O CVA. - Problem List/Discharge Diagnosis (1) Vertigo Status: Acute Base Code: R42 - DIZZINESS AND GIDDINESS Comment: 02/20/17- IMproved from yesterday. still dizzy with quick head movements. Safe to ambulate with walker per PT. CT head without acute change. Cardiac monitoring without arrhthymia. No focal neuro deficits. Carotid dopplers with no hemodynamically significant stenosis. Likely BPPV with history and negative work up. - Plan to discharge with home PT for vertigo -meclizine 25mg po up to three times daily as needed -follow up with Dr. Patel in 1-2 weeks -counseled patient and family on need to return to ED if any new symtpoms or severity changes. they voiced understanding. (2) Hypertension Status: Acute Discharge Diagnosis: Hypertension type: essential hypertension Qualified Code(s): I10 - Essential (primary) hypertension Base Code: I10 - ESSENTIAL (PRIMARY) HYPERTENSION (3) DVT prophylaxis Status: Acute Base Code: [id number] - Comment: 02/20/17- High risk with age but ahs been up ambulating with PT. -will add lovenox if stay >24H anticipated - Hospitalization Course Disposition: Home Health Service Procedures: Imaging and X-Rays 02/20/17 09:15 ARTERIAL DOPPLER CAROTID JEN [US] Stat Abnormal Labs: Abnormal Lab Results 02/20/17 02/20/17 Range/Units 07:58 07:58 MCV 97.8 H (81-97) fl Lymphocytes % 13.7 L (16-45) % Monocytes % 9.1 H (0-9) % Creatinine 1.5 H (0.7-1.2) mg/dL Albumin 3.7 L (4.0-5.0) g/dL Condition at Discharge: (2) Stable Discharge Medications - Discharge Medications Prescriptions: Meclizine HCl [Antivert] 25 mg PO TID PRN #90 tablet PRN Reason: DIZZINESS Home Medications: Ambulatory Orders Amlodipine Besylate [Norvasc] 10 mg PO DAILY 08/17/16 [Last Taken 02/19/17 0900] Aspirin [Adult Low Dose Aspirin EC] 81 mg PO DAILY 08/17/16 [Last Taken 0900] Omeprazole [Prilosec] 20 mg PO DAILY PRN 08/17/16 [Last Taken 02/18/17 09:00] Acetaminophen [Tylenol 500Mg Tab] 500 mg PO Q6H PRN 08/18/16 [Last Taken Unknown ] Atorvastatin Calcium [Lipitor] 10 mg PO QHS 02/19/17 [Last Taken 02/18/17 2100] Ciprofloxacin HCl [Cipro] 500 mg PO MOWEFR 02/19/17 [Last Taken 1 Day Ago ~02/18] Meclizine HCl [Antivert] 25 mg PO TID PRN #90 tablet 02/20/17 [Last Taken Unknown] Discharge Plan - Discharge Instructions Activity at Discharge: As Per Physical Therapy Diet at Discharge: Regular Diet Instructions: Dizziness (ED) Additional Instructions: Continue home Physical therapy for vestibular training May use the meclizine up to three times daily as needed for vertigo Follow up with Dr. Patel in the next 1-3 weeks Please call with any questions or concerns Return to ED for any new or changing symptoms Quality Measures - Quality Measures Quality Measures: Advance Directives, Documentation of Current Medications in Medical Record, Elder Maltreatment Screen and Follow-Up Plan, Screening for High Blood Pressure and F/U Documented - Current Medications Quality Measure: Measure #130: Documentation of Current Medications Documentation of Current Medications: <Current Medications Documented/Reviewed> [G8446] - Blood Pressure Screening Quality Measure: Screening for High Blood Pressure and Follow-Up Documented Does Patient Have Any of the Following: Active Dx of HTN Blood Pressure Classification: Hypertensive Reading Systolic Measurement: 164 Diastolic Measurement: 90 Screening for High Blood Pressure: Patient Exclusion, Hx of HTN [G9744] - Advance Directives Quality Measure: Measure #47: Care Plan Advance Directives Established: Yes Advance Directives Information Provided To Patient: Already Provided Advance Directives on File: No Living Will: Yes Power of Putter In: Yes Power of Putter In Name: Keesha DudleyCaesar Advance Care Planning: <Care Plan/Decision Maker Documented; Discussed & Documented> [7403F] - Elder Abuse Suspicion Index Screening: Elder Abuse Suspicion Index Screening Rely on people for bathing, dressing, shopping, banking, etc: No Prevented from getting food, clothes, medication, etc: No Made to feel shamed or threatened by someone: No Forced to sign papers or use money against will: No Feel afraid, touched in ways not wanted or hurt physically: No Poor eye contact, withdrawn, malnourished, cuts or bruises: No Screening Result: Negative result EASI Reference Information: Janae BLANCAS, Roddy C, Cleopatra D, Faizan Robison.Development and validation of a tool to assist physicians identification of elder abuse: The Elder Abuse Suspicion Index (EASI ). Journal of Elder Abuse and Neglect, 2008; 20 (3): 276-300. - Elder Maltreatment Screen Quality Measures: Elder Maltreatment Screen and Follow-Up Plan Elder Maltreatment Screen: <Negative, No Follow-Up Plan Required> [G8734]
--- NOTE | 2017-02-21 08:51 | US CAROTID DOPPLER REPORT ---
DATE: 02/20/2017 at 0928. EXAM: CAROTID DOPPLER ULTRASOUND. HISTORY: Acute dizziness and vertigo. Visual loss on the right intermittently. COMPARISON: Head CT dated 02/19/2017. TECHNIQUE: Real-time grayscale sonographic imaging of the neck was performed with duplex Doppler and spectral analysis. FINDINGS: Grayscale images demonstrate minimal smooth, hard plaque of the carotid bulb as well as the left external carotid artery. Spectral waveform analysis reveals brisk carotid upstroke with no parvus tardus morphology. Velocities are as follows: Right CCA PSV: 129.2 cm/s Right ICA PSV: 108 cm/s Right ICA EDV: 33.3 cm/s Right ECA PSV: 78.5 cm/s Right ICA/CCA ratio: 0.9 Left CCA PSV: 121.3 cm/s Left ICA PSV: 81.1 cm/s Left ICA EDV: 25.4 cm/s Left ECA PSV: 143 cm/s Left ICA/CCA ratio: 0.8 There is antegrade flow in the vertebral arteries. IMPRESSION: 1. NO HEMODYNAMICALLY SIGNIFICANT STENOSIS IN THE HEAD OR NECK IDENTIFIED. 2. ANTEGRADE FLOW IN THE VERTEBRAL ARTERIES. JOB NUMBER: [id number] MTDD
== END 2017-02-20 14:55 | disposition home health service (06) ==
LOC: ER 10:16 → MEDSURG 13:05
PROVIDERS: ADMIT Internal Medicine; ATTEND Internal Medicine
DX: R42 Dizziness and giddiness (principal); I10 Essential (primary) hypertension; R27.8 Other lack of coordination; E78.5 Hyperlipidemia, unspecified; N18.3 Chronic kidney disease, stage 3 (moderate); Z87.891 Personal history of nicotine dependence
CPT/HCPCS: 99285 ×2; 96374; 82550; 85025; 82553; 80053 ×2; 84484; 85027; 93880; 70450; 94760; 93005; 93010; G0378 ×2; J2405; G8978; G8979; G8980; 99220; J3360; J7030